=== PATIENT | female | born 1950 | race Caucasian/White ===

== ENCOUNTER 2017-02-05 02:48 | Emergency (ER) | payer MEDICAID ==
[~2017-02-05] VITALS: Ht 154.9 cm; Wt 52.2 kg
[2017-02-05 02:50] VITALS: BP 161/99
[2017-02-05 04:23] VITALS: BP 153/93
[2017-02-05] MEDS ORDERED: PREDNISONE20 MG ORAL (04:56)
[2017-02-05] MEDS ORDERED: BENADRYL25 M3 PO (04:56)
[2017-02-05] MEDS ORDERED: ERYTHROMYCIN3.5 GM BOTH EYES (04:56)
--- NOTE | 2017-02-05 05:59 | Emergency Room Report ---
History of Present Illness General Chief Complaint: Allergic Reaction Source: Patient, EMS Present Illness HPI 66 YOF BIBEMS for concern for allergic reaction Ate marijuana potato chips X4 today for first time for "insomnia" Awoke with bilateral eye swelling, discharge and facial swelling Denies throat swelling, pain, tongue or lips swelling Got IM benadryl from EMS Never had MJ before No other known allergies Allergies: Coded Allergies: No Known Allergies (Unverified , 02/05/17) Patient History Past Medical History: none Past Surgical History: none Pertinent Family History: none Social History: Denies: smoking, alcohol use, drug use Now: No Immunizations: UTD Reviewed Nursing Documentation: PMH: Agreed, PSxH: Agreed Nursing Documentation-PMH Past Medical History: No Stated History Review of Systems All Other Systems: negative except mentioned in HPI Physical Exam Vital Signs Date Time Temp Pulse Resp B/P (MAP) Pulse Ox O2 Delivery O2 Flow Rate FiO2 02/05/17 02:37 98.1 124 16 170/84 96 Room Air Sp02 EP Interpretation: reviewed, normal General Appearance: normal inspection, well appearing, no apparent distress, alert Head: normocephalic, atraumatic Eyes: bilateral eye PERRL, bilateral eye EOMI, bilateral eye other - Bilateral white discharge from eyes. Swollen eyelids, face. ENT: normal ENT inspection, hearing grossly normal, normal pharynx, no angioedema, normal voice, TMs + canals normal, uvula midline Neck: normal inspection, full range of motion, supple, no bony tend Respiratory: normal inspection, lungs clear, normal breath sounds, no respiratory distress, no retraction, no wheezing Cardiovascular #1: regular rate, rhythm, no edema Gastrointestinal: normal inspection, normal bowel sounds, non tender, soft, no guarding, no hernia Genitourinary: no CVA tenderness Musculoskeletal: normal inspection, back normal, normal range of motion, Margie' s Sign negative Neurologic: normal inspection, alert, oriented x3, responsive, sort worker III-XII nml as tested, motor strength/tone normal Psychiatric: normal inspection, judgement/insight normal, mood/affect normal Medical Decision Making Diagnostic Impression: Primary Impression: Allergic reaction Qualified Codes: T78.40XA - Allergy, unspecified, initial encounter ER Course Allergic reaction, mild, likely d/t marijuana edibles No other new meds, exposures Airway patent Was given PO prednisone in ED Observed for multiple hours No worsening of symptoms Also has bacterial conjunctivitis - Rx topical ointment given Rx Prednisone and benadryl Return to ER for worsening symptoms Avoid MJ products in future Last Vital Signs Date Time Temp Pulse Resp B/P (MAP) Pulse Ox O2 Delivery O2 Flow Rate FiO2 02/05/17 04:23 64 15 153/93 97 Room Air 02/05/17 02:50 97.9 Status: improved Disposition: HOME, SELF-CARE Condition: Improved Scripts Diphenhydramine HCl (Benadryl) 25 Mg Capsule 25 MG PO BID Y for swelling, itch for 7 Days, #30 CAP Prov: DEISY CHRISTIE M.D. 02/05/17 Prednisone* (PREDNISONE*) 20 Mg Tablet 40 MG ORAL DAILY for 5 Days, #10 TAB Prov: DEISY CHRISTIE M.D. 02/05/17 Erythromycin Base (ERYTHROMYCIN*) 3.5 Gm Oint...g. 1 APPLIC BOTH EYES TID for 7 Days, #3.5 GM 0 Refills Prov: DEISY CHRISTIE M.D. 02/05/17 Referrals: [facility],REFERRING (PCP) Patient Instructions: Pruritus Additional Instructions: - Take prednisone next 4 days each morning - Take bendaryl as needed for itch, swelling - DO NOT USE MARIJUANA EDIBLES ANYMORE - use antibiotic cream for infection of your eyes DEISY CHRISTIE M.D. Feb 05, 2017 05:59
[2017-02-05 06:30] VITALS: BP 143/84
[2017-02-05 06:42] VITALS: BP 143/84
== END 2017-02-05 06:42 | disposition home or self-care (01) ==
LOC: EDBD 02:48 → EMR 02:59
DX: T78.40XA Allergy, unspecified, initial encounter (principal); X58.XXXA Exposure to other specified factors, initial encounter; Y93.9 Activity, unspecified; Y92.9 Unspecified place or not applicable; F12.90 Cannabis use, unspecified, uncomplicated
CPT/HCPCS: 99284

== ENCOUNTER 2017-04-07 11:33 | Emergency (ER) | payer MEDICAID ==
[~2017-04-07] VITALS: Ht 154.9 cm; Wt 52.2 kg
[~2017-04-07 11:33] MED LIST: BENADRYL25 M3 PO; ERYTHROMYCIN3.5 GM BOTH EYES; PREDNISONE20 MG ORAL
[2017-04-07] MEDS ORDERED: Bacitracin Oint UD TOPIC ONE (12:00)
[2017-04-07] MEDS ORDERED: Tetanus/Diptheria/Pertussis Vaccine 0.5ml Syr IM ONE (12:00)
[2017-04-07] MEDS ORDERED: Thiamine HCl 100 MG in D5W 55 ML IVPB SCH (12:00)
[2017-04-07 12:39] LABS: BASOPHILS % (AUTO) 1.4 % (0.0-2.0); EOSINOPHILS % (AUTO) 1.9 % (0.0-3.0); MEAN CORPUSCULAR HEMOGLOBIN 36.4 PG (27.0-31.0); MEAN CORPUSCULAR HGB CONC 34.3 G/DL (32.0-36.0); MEAN CORPUSCULAR VOLUME 106 FL (80-99); MEAN PLATELET VOLUME 6.4 FL (6.5-10.1); MONOCYTES % (AUTO) 8.9 % (1.0-10.0); NEUTROPHILS % (AUTO) 55.9 % (45.0-75.0); PLATELET COUNT 336 K/UL (150-450); RED BLOOD COUNT 3.81 M/UL (4.20-5.40); RED CELL DISTRIBUTION WIDTH 11.5 % (11.6-14.8); WHITE BLOOD COUNT 9.4 K/UL (4.8-10.8)
[2017-04-07 12:55] LABS: ANION GAP 9 mmol/L (5-15); CALCIUM 8.7 MG/DL (8.5-10.1); CARBON DIOXIDE 29 MMOL/L (21-32); CHLORIDE 105 MMOL/L (98-107); CREATININE 0.5 MG/DL (0.55-1.30); GLOMERULAR FILTRATION RATE > 60 mL/min (>60); POTASSIUM 3.3 MMOL/L (3.5-5.1); SODIUM 143 MMOL/L (136-145)
--- NOTE | 2017-04-07 12:55 | Diagnostic Imaging Report ---
Indications: Pain status post fall altered middle status Technique: Spiral acquisitions obtained through the brain. Angled axial and coronal 5 x 5 mm slices were reconstructed. Total dose length product 1390 mGycm. CTDI vol(s) 70 mGy. Dose reduction achieved using automated exposure control Comparison: None Findings: There is enlargement of the extra-axial CSF spaces, predominantly in the frontal regions bilaterally. There is mild prominence of the ventricles. No acute intracranial hemorrhage or edema. No mass effect nor midline shift. Intact calvarium. Visualized orbits and sinuses are unremarkable. The mastoids are clear Impression: Age-related changes. Negative for acute intracranial bleed or mass effect The CT scanner at [facility] is accredited by the [employer] and the scans are performed using protocols designed to limit radiation exposure to as low as reasonably achievable to attain images of sufficient resolution adequate for diagnostic evaluation.
[2017-04-07] MEDS ORDERED: Thiamine HCl 100mg/ml 2 ml Inj ONE (12:58)
[2017-04-07 12:59] LABS: ALANINE AMINOTRANSFERASE 35 U/L (12-78); ALBUMIN/GLOBULIN RATIO 0.9 (1.0-2.7); ALCOHOL 172 mg/dL; ASPARTATE AMINO TRANSFERASE 38 U/L (15-37); TOTAL PROTEIN 6.2 G/DL (6.4-8.2)
[2017-04-07 13:04] LABS: ACETAMINOPHEN < 2 MCG/ML (10-30)
--- NOTE | 2017-04-07 13:06 | Emergency Room Report ---
History of Present Illness General Chief Complaint: Multiple Trauma/Fall Source: Patient, EMS Present Illness HPI The patient is brought in from home via EMS. She states that she's been crawling around on the floor to get around her apartment since she fell last (a week ago). She is mainly complaining about pain in her right knee. She states she did not hit her head. She does note that she's had generalized weakness and has not been eating well. She's been drinking alcohol daily. Denies incontinence but is been using diapers because she hasn't been in to get to the bathroom quickly enough. She has bruising. She is depressed not eating well. She lives by herself at this time. Her mother and dog within the last year. She is not suicidal. No fevers, NVD, dysuria, change in vision (wears glasses), chest pain, palpitations, cough, URI sy. Allergies: Coded Allergies: No Known Allergies (Unverified , 02/05/17) Patient History Past Medical History: see triage record Social History: Reports: smoking, alcohol use Social History Narrative lives by herself Reviewed Nursing Documentation: PMH: Agreed, PSxH: Agreed Nursing Documentation-PMH Past Medical History: No Stated History Review of Systems All Other Systems: negative except mentioned in HPI Physical Exam Vital Signs Date Time Temp Pulse Resp B/P (MAP) Pulse Ox O2 Delivery O2 Flow Rate FiO2 04/07/17 11:33 98.1 90 18 107/75 96 Room Air Sp02 EP Interpretation: reviewed, normal - but slightly low as interpreted by me General Appearance: other - slightly dishevelled and tearful Head: normocephalic Eyes: bilateral eye PERRL, bilateral eye EOMI, bilateral eye Scleral Injection ENT: moist mucus membranes Neck: full range of motion, supple, no bony tend Respiratory: chest non-tender, lungs clear, normal breath sounds Cardiovascular #1: regular rate, rhythm Cardiovascular #2: 2+ radial (R), 2+ dorsalis pedis (R) - cap fill normal Gastrointestinal: normal bowel sounds, non tender, soft Musculoskeletal: digits/nails normal, decreased range of motion - R knee, swelling, tender - R knee with effusion Neurologic: alert, oriented x3, motor strength/tone normal, sensory intact, speech normal Psychiatric: no suicidal/homicidal ideation, depressed affect Skin: other - ecchymoses, tobacco smell of fingers, abrasions Medical Decision Making Diagnostic Impression: Primary Impression: Multiple injuries due to trauma Additional Impressions: Closed fracture of right distal femur Qualified Codes: S72.491A - Other fracture of lower end of right femur, initial encounter for closed fracture Alcohol abuse Failure to thrive Qualified Codes: R62.7 - Adult failure to thrive Depression Qualified Codes: F32.9 - Major depressive disorder, single episode, unspecified ER Course The patient fell a week ago and has been unable to ambulate. She also is been drinking alcohol. She has pain in her knee. Differential includes fracture, contusion, sprain amongst others. In addition to that weakness could because electrolyte imbalance, acute myocardial infarction, alcohol abuse, occult infection amongst others. Evaluation will be with an EKG, labs chest x-ray and right knee film. She has a nonfocal neurologic exam at this time and a CT of the head is not indicated. She'll be treated with thiamine and pain medication. There is evidence of a distal right femur fracture which is nondisplaced. An immobilizer is placed by pc technician. Position excellent and neurovasc normal as checked by me. EKG without injury. CXR clear. Labs with + alcohol. Potassium slightly low. Urine pending. Discussed with Dr. Napoles who accepts the patient in transfer. She is upset about where she is being transferred to but agrees to go.. Laboratory Tests Test 04/07/17 12:20 04/07/17 13:10 White Blood Count 9.4 K/UL (4.8-10.8) Red Blood Count 3.81 M/UL (4.20-5.40) L Hemoglobin 13.9 G/DL (12.0-16.0) Hematocrit 40.4 % (37.0-47.0) Mean Corpuscular Volume 106 FL (80-99) H Mean Corpuscular Hemoglobin 36.4 PG (27.0-31.0) H Mean Corpuscular Hemoglobin Concent 34.3 G/DL (32.0-36.0) Red Cell Distribution Width 11.5 % (11.6-14.8) L Platelet Count 336 K/UL (150-450) Mean Platelet Volume 6.4 FL (6.5-10.1) L Neutrophils (%) (Auto) 55.9 % (45.0-75.0) Lymphocytes (%) (Auto) 32.0 % (20.0-45.0) Monocytes (%) (Auto) 8.9 % (1.0-10.0) Eosinophils (%) (Auto) 1.9 % (0.0-3.0) Basophils (%) (Auto) 1.4 % (0.0-2.0) Sodium Level 143 MMOL/L (136-145) Potassium Level 3.3 MMOL/L (3.5-5.1) L Chloride Level 105 MMOL/L (98-107) Carbon Dioxide Level 29 MMOL/L (21-32) Anion Gap 9 mmol/L (5-15) Blood Urea Nitrogen 8 mg/dL (7-18) Creatinine 0.5 MG/DL (0.55-1.30) L Estimate Glomerular Filtration Rate > 60 mL/min (>60) Glucose Level 97 MG/DL (74-106) Calcium Level 8.7 MG/DL (8.5-10.1) Total Bilirubin 0.1 MG/DL (0.2-1.0) L Aspartate Amino Transferase (AST) 38 U/L (15-37) H Alanine Aminotransferase (ALT) 35 U/L (12-78) Alkaline Phosphatase 88 U/L (46-116) Total Creatine Kinase 172 U/L (26-308) Troponin I < 0.017 ng/mL (0.000-0.056) Total Protein 6.2 G/DL (6.4-8.2) L Albumin 2.9 G/DL (3.4-5.0) L Globulin 3.3 g/dL Albumin/Globulin Ratio 0.9 (1.0-2.7) L Salicylates Level 4.3 ug/mL (2.8-20) Acetaminophen Level < 2 MCG/ML (10-30) L Serum Alcohol 172 mg/dL Ammonia 33 umol/L (11.2-31.7) H EKG Diagnostic Results Rate: normal Rhythm: NSR ST Segments: no acute changes Rhythm Strip Diag. Results EP Interpretation: yes Rhythm: NSR, no PVC's, no ectopy Chest X-Ray Diagnostic Results Chest X-Ray Diagnostic Results : Chest X-Ray Ordered: Yes # of Views/Limited/Complete: 1 View Indication: Other Interpretation: no consolidation, no effusion, no pneumothorax, no acute cardiopulmonary disease Impression: No acute disease Electronically Signed by: Electronically signed by Jaspreet Milligan MD Other X-Ray Diagnostic Results Other X-Ray Diagnostic Results : X-Ray ordered: Right knee # of Views/Limited Vs Complete: 3 View Indication: Pain EP Interpretation: Yes Interpretation: no dislocation, other - Fracture distal femur an effusion mild degenerative disease Impression: Other Electronically Signed by: Electronically signed by Jaspreet Milligan MD Last Vital Signs Date Time Temp Pulse Resp B/P (MAP) Pulse Ox O2 Delivery O2 Flow Rate FiO2 04/07/17 13:40 98.1 75 18 115/75 98 Room Air Status: improved Disposition: XFER [facility] Condition: Serious - stable for transfer Referrals: [facility],REFERR[facility] (PCP) Jaspreet Milligan M.D. Apr 07, 2017 13:06
[2017-04-07 13:28] VITALS: BP 111/77
[2017-04-07 13:40] VITALS: BP 115/75
--- NOTE | 2017-04-07 15:37 | Diagnostic Imaging Report ---
Indication: TRAUMA, pain, status post fall one week ago Technique: 3 views of the right knee Comparison: None Findings:Somewhat unusual nondisplaced slightly distracted fracture of the medial femoral condyle. This involves anterior joint surface. Fracture line may extend to the lateral epicondyle. No joint effusion despite this. No other acute fractures. No dislocations. There is slight medial compartmental degenerative joint space narrowing. Impression:Positive for lateral condylar fracture, as described This agrees with the findings described by the ER physician in the electronic medical record
--- NOTE | 2017-04-07 15:38 | Diagnostic Imaging Report ---
Indication: TRAUMA chest pain Technique: One view of the chest Comparison: none Findings: Lungs and pleural spaces are clear. Heart size is upper limits normal. Inspiration is suboptimal. There is an old healed right rib fracture posteriorly. Impression: No acute process
--- NOTE | 2017-04-26 14:53 | Cardiology Report ---
APPROVED REPORT EKG Measurement Heart [id number] Normal sinus rhythm Normal ECG
== END 2017-04-07 13:44 | disposition short-term general hospital (02) ==
LOC: EDBD 11:33 → EMR 11:56
DX: S72.424A Nondisplaced fracture of lateral condyle of right femur, initial encounter for closed fracture (principal); S60.419A Abrasion of unspecified finger, initial encounter; W01.0XXA Fall on same level from slipping, tripping and stumbling without subsequent striking against object, initial encounter; Y92.019 Unspecified place in single-family (private) house as the place of occurrence of the external cause; Z23 Encounter for immunization; F10.10 Alcohol abuse, uncomplicated; F32.9 Major depressive disorder, single episode, unspecified; R62.7 Adult failure to thrive
CPT/HCPCS: 36415; 70450; 71010; 80053; 80329; 82140; 82550; 82962; 84484; 85025; 90471; 90715; 93005; 96361; 96365; 99285

== ENCOUNTER 2018-10-23 16:09 | Emergency (ER) | payer MEDICARE ==
[~2018-10-23] VITALS: Ht 157.5 cm; Wt 54.4 kg
[2018-10-23 16:37] VITALS: BP 113/71
[2018-10-23] MEDS ORDERED: NKM (16:38)
--- NOTE | 2018-10-23 16:38 | NUR ---
ED Nurse Note: CAME IN TO ER DUE TO PAIN RIGHT KNEE S/P SLIPPED AND FALL 10/17/18 NIGHT. patient is reporting 8/10 pain located on her right leg, patient is currently on a wheelchair. patient is alert and oriented x4, ambulatory with a steady gait, vSS
--- NOTE | 2018-10-23 19:18 | Emergency Room Report ---
History of Present Illness General Chief Complaint: Multiple Trauma/Fall Source: Patient (Veronica Shannon) Present Illness HPI 68-year-old female with no significant past medical history here complaining of right knee pain after she fell yesterday. Patient also complains of minimal calf tenderness, complaining of 10 out of 10 pain in right knee unable to bend is ambulating with a wheelchair, denies tingling and numbness. Has taken ibuprofen with minimal relief. Denies other injuries, chest pain, shortness of breath, palpitation, and other associated symptoms. (Veronica Shannon) Allergies: Coded Allergies: No Known Allergies (Unverified , 02/05/17) Patient History Past Medical History: see triage record Past Surgical History: unable to obtain Pertinent Family History: none Now: No Immunizations: UTD Reviewed Nursing Documentation: PMH: Agreed; PSxH: Agreed (Veronica Shannon) Nursing Documentation-PMH Past Medical History: No Stated History (Veronica Shannon) Review of Systems All Other Systems: negative except mentioned in HPI (Veronica Shannon) Physical Exam Vital Signs Date Time Temp Pulse Resp B/P (MAP) Pulse Ox O2 Delivery O2 Flow Rate FiO2 10/23/18 16:35 98.2 85 16 113/71 (85) 95 Room Air Sp02 EP Interpretation: reviewed, normal General Appearance: normal inspection, well appearing, no apparent distress, alert Head: normocephalic, atraumatic Eyes: bilateral eye normal inspection, bilateral eye PERRL ENT: normal ENT inspection, hearing grossly normal, normal pharynx Neck: normal inspection, full range of motion, supple, no carotid bruits Respiratory: normal inspection, chest non-tender, lungs clear, no rhonchi, no wheezing Cardiovascular #1: normal inspection, normal peripheral pulses, regular rate, rhythm, no edema, no murmur, normal capillary refill Cardiovascular #2: 2+ dorsalis pedis (R), 2+ dorsalis pedis (L) Gastrointestinal: normal inspection, normal bowel sounds, non tender Genitourinary: normal inspection, no CVA tenderness Musculoskeletal: back normal, no calf tenderness, Margie's Sign negative, tender - right proximal tibia ttp Neurologic: normal inspection, alert, oriented x3, responsive Psychiatric: normal inspection, judgement/insight normal Skin: normal inspection, normal color, no rash Lymphatic: normal inspection, no adenopathy (Veronica Shannon) Medical Decision Making PA Attestation All diagnoses and treatment plans were reviewed and discussed with my supervising physician (Veronica Shannon) Diagnostic Impression: Primary Impression: Closed fracture of right proximal tibia ER Course 68-year-old female with no significant past medical history here complaining of right knee pain after she fell yesterday. Patient also complains of minimal calf tenderness, complaining of 10 out of 10 pain in right knee unable to bend is ambulating with a wheelchair, denies tingling and numbness. Has taken ibuprofen with minimal relief. Denies other injuries, chest pain, shortness of breath, palpitation, and other associated symptoms. Ddx considered but are not limited to right knee fracture, right proximal tibia fracture, right knee sprain, DVT Vital signs: are WNL, pt. is afebrile H&PE are most consistent with right proximal tibial fracture ORDERS: Right knee x-ray, right venous Doppler ultrasound, naproxen, ED INTERVENTIONS: Right knee brace DISCHARGE: At this time pt. is stable for d/c to home. Will provide printed patient care instructions, and any necessary prescriptions. Care plan and follow up instructions have been discussed with the patient prior to discharge. Patient to follow-up with primary care provider and commercial lawn specialist for further assessment of her fracture MRI of the knee may be needed (Veronica Shannon) Other X-Ray Diagnostic Results Other X-Ray Diagnostic Results : X-Ray ordered: right knee # of Views/Limited Vs Complete: 2 View Indication: Pain EP Interpretation: Yes PA Xray: Interpretation reviewed, by supervising MD, and agrees with findings. Interpretation: other - fx right proximal tibia Electronically Signed by: veronica vidales PA-C (Veronica Shannon) Other X-Ray Diagnostic Results : Electronically Signed by: KAYLEE documentation reviewed by me and is accurate, Jaspreet Milligan MD (Jaspreet Milligan MD) CT/MRI/US Diagnostic Results CT/MRI/US Diagnostic Results : Imaging Test Ordered: right jazzy doppler US LE Impression neg DVT (Veronica Shannon) Last Vital Signs Date Time Temp Pulse Resp B/P (MAP) Pulse Ox O2 Delivery O2 Flow Rate FiO2 10/23/18 16:35 98.2 85 16 113/71 (85) 95 Room Air (Veronica Shannon) Disposition: HOME, SELF-CARE Condition: Stable Scripts Naproxen* (NAPROXEN*) 500 Mg Tablet 500 MG ORAL TWICE A DAY, #30 TAB Prov: Veronica Shannon 10/23/18 Patient Instructions: Tibial Fracture, Adult Additional Instructions: The primary care provider for follow-up and referral to also keep leg elevated wear the brace at all times Veronica Shannon Oct 23, 2018 19:18 Jaspreet Milligan MD Oct 26, 2018 07:15
[2018-10-23] MEDS ORDERED: NAPROXEN500 M2 ORAL (19:19)
[2018-10-23 19:30] VITALS: BP 113/71
--- NOTE | 2018-10-23 19:30 | NUR ---
ER DISCHARGE NOTE: Patient is cleared to be discharged per ERMD, pt is aox4, on room air, with stable vital signs. pt was given dc and prescription instructions, pt was able to verbalize understanding, pt id band removed without complications. pt is able to ambulate with steady gait. pt took all belongings.
--- NOTE | 2018-10-24 13:08 | Diagnostic Imaging Report ---
Indication: Pain, trauma Technique: 3 views of the right knee Comparison: None Findings: There is a vertically oriented fracture of the lateral tibial plateau extending into the tibial shaft. This is slightly depressed. There is a joint effusion. There is surrounding soft tissue swelling. No fibular, femoral, or patellar fracture demonstrated. The bones are osteoporotic. There is degenerative narrowing of the medial joint compartment and medial osteophytes. Impression: Positive for lateral tibial plateau fracture, as described Associated joint effusion and soft tissue swelling Mild degenerative changes, as described
--- NOTE | 2018-10-24 15:01 | Diagnostic Imaging Report ---
Indication: Right lower extremity pain Technique: Grayscale and duplex images of the right lower extremity veins Comparison: none Findings: Grayscale and duplex images demonstrate no evidence of intraluminal thrombus. Normal compressibility. Normal phasic Doppler waveforms demonstrating normal augmentation response and no evidence of valvular insufficiency Impression: Negative for right lower extremity venous thrombosis
== END 2018-10-23 19:30 | disposition home or self-care (01) ==
LOC: EMR 16:57
DX: S82.101A Unspecified fracture of upper end of right tibia, initial encounter for closed fracture (principal); W19.XXXA Unspecified fall, initial encounter; Y92.9 Unspecified place or not applicable
CPT/HCPCS: 29505; 93971; 99284